=== PATIENT | male | born 2005 | race Hispanic/Latino ===

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

== ENCOUNTER 2023-07-21 02:48 | Emergency (ER) | payer MEDICAID, OTHER ==
[~2023-07-21] VITALS: Ht 177.8 cm; Wt 98.0 kg
[~2023-07-21 02:48] MED LIST: NAPR-1196 PO
[2023-07-21 02:50] VITALS: BP 125/72; PULSE 70; RESP 16
[2023-07-22] MEDS ORDERED: IBUP-2077 PO (00:23)
== END 2023-07-21 05:32 | disposition left against medical advice (07) ==
LOC: EDH 02:48
DX: M79.641 Pain in right hand (principal); M79.89 Other specified soft tissue disorders; Z53.21 Procedure and treatment not carried out due to patient leaving prior to being seen by health care provider
CPT/HCPCS: 99281

== ENCOUNTER 2023-07-21 20:59 | Emergency (ER) | payer OTHER ==
[~2023-07-21] VITALS: Ht 177.8 cm; Wt 99.8 kg
[2023-07-21 23:56] VITALS: BP 127/74; PULSE 94; RESP 18
[2023-07-22] MEDS ORDERED: IBUP-2077 PO (00:23)
[2023-07-22] MEDS ORDERED: IBUPROFEN 800 MG TAB PO ONE (00:30)
== END 2023-07-22 01:59 | disposition home or self-care (01) ==
LOC: EDH 20:59
DX: S62.394A Other fracture of fourth metacarpal bone, right hand, initial encounter for closed fracture (principal); X58.XXXA Exposure to other specified factors, initial encounter; Y93.89 Activity, other specified; Y92.89 Other specified places as the place of occurrence of the external cause; Y99.8 Other external cause status
CPT/HCPCS: 99282

== ENCOUNTER 2024-02-02 10:42 | Emergency (ER) | payer OTHER ==
[~2024-02-02] VITALS: Ht 177.8 cm; Wt 90.7 kg
[~2024-02-02 10:42] MED LIST changes: +IBUP-2077 PO
[2024-02-02 10:44] VITALS: BP 114/68; PULSE 69; RESP 20
== END 2024-02-02 11:58 | disposition left against medical advice (07) ==
LOC: EDH 10:42
DX: R10.9 Unspecified abdominal pain (principal); Z53.21 Procedure and treatment not carried out due to patient leaving prior to being seen by health care provider

== ENCOUNTER 2025-06-15 07:50 | Emergency (ER) | payer SELFPAY ==
[~2025-06-15] VITALS: Ht 177.8 cm; Wt 94.8 kg
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
[2025-06-15] MEDS: LIDOCAINE 5% TOPICAL PATCH TP STA (09:14)
[2025-06-15 09:35] VITALS: BP 107/69; PULSE 65; RESP 16; TEMP 97.9; O2SAT 98
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
== END 2025-06-15 09:32 | disposition home or self-care (01) ==
LOC: EDH 07:50
DX: G89.21 Chronic pain due to trauma (principal); S42.001A Fracture of unspecified part of right clavicle, initial encounter for closed fracture; Z79.899 Other long term (current) drug therapy; X58.XXXA Exposure to other specified factors, initial encounter; Y93.89 Activity, other specified; Y92.89 Other specified places as the place of occurrence of the external cause; Y99.8 Other external cause status
CPT/HCPCS: 99283; 73000; 96372; J1885